=== PATIENT | male | born 2000 | race Two or more races ===

== ENCOUNTER 2025-08-10 21:00 | Emergency (ER) | payer MEDICAID ==
[~2025-08-10] VITALS: Ht 170.2 cm; Wt 69.7 kg
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
[2025-08-10] MEDS ORDERED: TIZA4TAB11 PO (22:43)
[2025-08-10] MEDS ORDERED: IBUP-1984 PO (22:43)
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
[2025-08-10 22:53] VITALS: BP 100/63; PULSE 66; RESP 16; TEMP 98.6; O2SAT 98
== END 2025-08-10 22:55 | disposition home or self-care (01) ==
LOC: ER 21:01
DX: M54.6 Pain in thoracic spine (principal); V49.40XA Driver injured in collision with unspecified motor vehicles in traffic accident, initial encounter; Y93.89 Activity, other specified; Y92.89 Other specified places as the place of occurrence of the external cause; Y99.8 Other external cause status
CPT/HCPCS: 71045; 72070; 99284